=== PATIENT | female | born 1940 | race Caucasian/White ===

== ENCOUNTER 2018-11-18 10:40 | Day surgery (SDC) | payer OTHER ==
[2018-11-18] MEDS ORDERED: LIDOCAINE 2% MPF 5 ML VIAL ONE (10:49)
[2018-11-18] MEDS ORDERED: CYCLOPENTOLATE 1% OPTH 2 ML ONE (10:49)
[2018-11-18] MEDS ORDERED: NA CHLORIDE 0.9% 500 ML ONE (10:50)
[2018-11-18] MEDS ORDERED: TETRACAINE HCL 0.5% 4ML OPTH ONE (10:50)
[2018-11-18] MEDS ORDERED: BUPIVACAINE 0.25% PF 10 ML VIAL ONE (10:50)
[2018-11-18] MEDS ORDERED: PHENYLEPHRINE 10% OPTH 5ML ONE (10:56)
[2018-11-18] MEDS ORDERED: NS 0.9% VIAL 10 ML ONE (10:59)
[2018-11-18] MEDS ORDERED: PHENYLEPHRINE 10% OPTH 5ML OPTH ONE ×2 (11:06→11:16)
[2018-11-18] MEDS ORDERED: CYCLOPENTOLATE 1% OPTH 2 ML OPTH ONE ×2 (11:06→11:16)
[2018-11-18] MEDS: LIDOCAINE HCL/PF 3.5% OPTH GEL ONE ×2 (11:19→12:08)
[2018-11-18] MEDS ORDERED: BSS OPTHALMIC SOL 15 ML BOT OPTH ONE (11:25)
[2018-11-18] MEDS ORDERED: FENTANYL CITR 100 MCG/2 ML ONE (12:03)
[2018-11-18] MEDS ORDERED: MIDAZOLAM HCL 2 MG/2 ML INJ ONE (12:04)
[2018-11-18] MEDS: LIDOCAINE 1% MPF 2 ML AMPULE ONE ×2 (12:24→12:28)
[2018-11-18] MEDS: BALANCED SALT IRRIG PLAIN 500 ML BTL IRR ONE ×2 (12:24→12:28)
[2018-11-18] MEDS: EPINEPHRINE/PF 1 MG/ML AMP ONE ×2 (12:25→12:28)
[2018-11-18] MEDS: DUOVISC 1 KIT OPTH ONE ×2 (12:26→12:29)
--- NOTE | 2018-11-18 12:50 | P.BOP ---
Preoperative diagnosis: Nuclear sclerotic cataract OD Postoperative diagnosis: Same Primary procedure: Phacoemulsification with IOL OD Estimated blood loss: None Anesthesia: Local (Topical with anesthesia for cataract surgery) Complications: None Implants: ZCB00 +19.0 Transferred to: Other (Day surgery) Condition: Good
--- NOTE | 2018-11-19 00:26 | OP ---
Date of Procedure: 11/18/2018 Surgeon: Bertha Gay MD Anesthesiologist: Hector Calderón CRNA and Mata George MD. Preoperative Diagnosis: Nuclear sclerotic cataract OD (right eye). Operation Performed: Phaco with IOL right eye. Anesthesia: Per cataract surgery. Complications: None. Description Of Procedure: In the operating room the patient was prepped and draped in the usual sterile fashion for ophthalmic surgery. A lid speculum was placed in the right eye. Two paracentesis sites were made superiorly and inferiorly in the limbal cornea. Viscoat was placed in the anterior chamber and a crescent blade was used to make a corneal groove and tunnel, and a keratome was used to enter the anterior chamber. Provisc was placed in the anterior chamber and a 360 degree capsulotomy was performed with a cystitome. The lens was hydrodissected with BSS and rotated freely. The lens was removed with a stop and chop technique. 11.35 phaco CDE was used to remove the lens. Residual cortex was removed with the irrigation and aspiration. Provisc was placed in the capsular bag. A ZCB00 +19.0 lens was placed in the capsular bag without complications. Irrigation and aspiration was used to remove residual viscoelastic. The paracentesis sites were hydrated with BSS. The wound and paracentesis sites were inspected and found to be watertight. The eye was irrigated with balanced salt solution. The eye was patched with a soft cotton patch and Pierre metal shield. The patient was returned to day surgery in good condition. Comments: Akten was placed in the eye prior in day surgery and irrigated out of the eye in the OR. Preservative free 1% lidocaine was placed in the anterior chamber prior to Viscoat. No Vigamox was used. Discharge Instructions: Ms. Corbett is discharged to home in good condition and is to follow up with Dr. Gay in the morning. GUERA/MODEh Voice ID: [id number] Report ID: [id number]
== END 2018-11-18 13:23 | disposition home or self-care (01) ==
LOC: OR 10:40
PROVIDERS: ATTEND Ophthalmology Retina Specialist
PROC: 08RJ3JZ Replacement of Right Lens with Synthetic Substitute, Percutaneous Approach (ICD-10-PCS; principal; 2018-11-18 11:00)
DX: H25.11 Age-related nuclear cataract, right eye (principal); I10 Essential (primary) hypertension; K21.9 Gastro-esophageal reflux disease without esophagitis; E78.00 Pure hypercholesterolemia, unspecified; F32.9 Major depressive disorder, single episode, unspecified; Z87.891 Personal history of nicotine dependence; Z85.118 Personal history of other malignant neoplasm of bronchus and lung; Z90.2 Acquired absence of lung [part of]; Z88.6 Allergy status to analgesic agent; Z88.3 Allergy status to other anti-infective agents; Z83.511 Family history of glaucoma; Z83.3 Family history of diabetes mellitus; Z82.49 Family history of ischemic heart disease and other diseases of the circulatory system
CPT/HCPCS: 66984; J0171; J2250; J3010; J2001